=== PATIENT | female | born 1965 | race African-American/Black ===

== ENCOUNTER 2020-02-18 13:17 | Emergency (ER) | payer OTHER ==
[~2020-02-18] VITALS: Ht 165.1 cm; Wt 85.3 kg
[2020-02-18 13:32] VITALS: Ht 165.1 cm; Wt 85.3 kg
[2020-02-18 14:55] VITALS: BP 124/82
== END 2020-02-18 14:55 | disposition home or self-care (01) ==
LOC: ED 13:17
DX: S62.616A Displaced fracture of proximal phalanx of right little finger, initial encounter for closed fracture (principal); W18.39XA Other fall on same level, initial encounter; Y93.01 Activity, walking, marching and hiking; Y92.89 Other specified places as the place of occurrence of the external cause; Y99.8 Other external cause status